=== PATIENT | male | born 1930 | race Caucasian/White ===

== ENCOUNTER 2019-06-26 17:21 | Inpatient (IN) ==
[2019-06-26] MEDS ORDERED: Ondansetron 4 MG/2 ML VIAL IVP PRN (19:52)
[2019-06-26] MEDS ORDERED: Naloxone 0.4 MG/ML INJ IVP PRN (19:52)
[2019-06-26] MEDS ORDERED: Acetaminophen 325 MG TABLET PO PRN (19:52)
[2019-06-26] MEDS ORDERED: Furosemide 40 MG in 0.9 % Sodium Chloride 50 ML IV ONE (20:21)
[2019-06-26] MEDS ORDERED: Furosemide 40 MG in 0.9 % Sodium Chloride 50 ML IVP ONE (20:23)
[2019-06-26] MEDS ORDERED: Furosemide 40 MG/4 ML VIAL IVP ONE (20:30)
[2019-06-26 20:48] LABS: Basophils % 0.3 %; Eosinophils # 0.2 K/mcL (0.0-0.6); Eosinophils % 2.8 %; Hematocrit 31.6 % (37.5-50.1); Hemoglobin 10.3 g/dL (12.9-16.9); Immature Granulocytes % 0.1 % (0-4); Lymphocytes # 1.8 K/mcL (0.6-4.6); Lymphocytes % 25.5 %; Mean Corpuscular HGB Conc 32.6 g/dL (31.6-35.5); Mean Corpuscular Hemoglobin 36.9 pg (28.0-33.3); Mean Corpuscular Volume 113.3 fL (83.0-100.0); Mean Platelet Volume 11.6 fL (9.4-12.4); Monocytes % 13.8 %; Neutrophils # 4.1 K/mcL (1.6-8.9); Platelet Count 284 K/mcL (140-400); Red Blood Count 2.79 M/mcL (4.19-5.50); Red Cell Distribution Width 15.9 % (11.5-14.5); Segmented Neutrophils % 57.5 %; White Blood Count 7.2 K/mcL (4.3-11.1)
[2019-06-26] MEDS: *HR* Digoxin 0.125 MG TABLET PO SCH (21:00)
[2019-06-26 21:07] LABS: Alanine Aminotransferase 37 Units/L (7-52); Albumin 2.4 g/dL (3.5-5.7); Albumin/Globulin Ratio 0.8 (1.1-2.2); Alkaline Phosphatase 191 Units/L (34-104); Aspartate Amino Transferase 37 Units/L (13-39); BUN/Creatinine Ratio 18 (6-26); Bilirubin,Total 0.3 mg/dL (0.3-1.0); Blood Urea Nitrogen 19 mg/dL (8-23); Carbon Dioxide 29 mEq/L (23-29); Chloride 106 mEq/L (98-107); Glucose 106 mg/dL (70-105); Magnesium 1.8 mg/dL (1.6-2.6); Osmolality,Calculated 287 (280-300); Potassium 4.9 mEq/L (3.5-5.1); Sodium 137 mEq/L (136-145); Total Protein 5.4 g/dL (6.4-8.9); eGFR For African Americans > 60 (> 60); eGFR For Non-African Americans > 60 (> 60)
[2019-06-26 21:20] LABS: Anisocytosis 1+ (Not Present); Ovalocytes 2+ (Not Present); Platelet Estimate Normal (Normal); Tear Drop Cells 2+ (Not Present)
[2019-06-26] MEDS ORDERED: *HR* Heparin 5,000 UNIT/ML VIAL IVP ONE (21:23)
[2019-06-26] MEDS ORDERED: *HR* Heparin 5,000 UNIT/ML VIAL IVP PRN ×2 (21:23)
[2019-06-26 21:39] LABS: INR 1.1; Prothrombin Time 12.4 Seconds (9.4-12.1)
[2019-06-26 22:05] LABS: Troponin I 0.05 ng/mL (< 0.04)
[2019-06-26] MEDS: Heparin 25,000 UNIT/250 ML D5W 25,000 UNIT/250 ML IV.SOLN IVC SCH (22:08)
[2019-06-27 04:13] LABS: Prothrombin Time 11.9 Seconds (9.4-12.1)
[2019-06-27 04:18] LABS: Basophils % 0.3 %; Eosinophils # 0.2 K/mcL (0.0-0.6); Eosinophils % 2.8 %; Hematocrit 31.8 % (37.5-50.1); Hemoglobin 10.6 g/dL (12.9-16.9); Immature Granulocytes % 0.2 % (0-4); Lymphocytes # 1.9 K/mcL (0.6-4.6); Lymphocytes % 21.6 %; Mean Corpuscular HGB Conc 33.3 g/dL (31.6-35.5); Mean Corpuscular Hemoglobin 36.4 pg (28.0-33.3); Mean Corpuscular Volume 109.3 fL (83.0-100.0); Mean Platelet Volume 11.9 fL (9.4-12.4); Monocytes % 11.9 %; Neutrophils # 5.5 K/mcL (1.6-8.9); Platelet Count 300 K/mcL (140-400); Red Blood Count 2.91 M/mcL (4.19-5.50); Red Cell Distribution Width 15.8 % (11.5-14.5); Segmented Neutrophils % 63.2 %; White Blood Count 8.7 K/mcL (4.3-11.1)
[2019-06-27 04:37] LABS: BUN/Creatinine Ratio 19 (6-26); Blood Urea Nitrogen 20 mg/dL (8-23); Calcium 7.3 mg/dL (8.6-10.3); Carbon Dioxide 27 mEq/L (23-29); Chloride 104 mEq/L (98-107); Glucose 76 mg/dL (70-105); Magnesium 1.6 mg/dL (1.6-2.6); Osmolality,Calculated 285 (280-300); Potassium 4.4 mEq/L (3.5-5.1); Sodium 137 mEq/L (136-145); eGFR For African Americans > 60 (> 60); eGFR For Non-African Americans > 60 (> 60)
[2019-06-27 04:45] LABS: % Iron Saturation 47 % (20-55); Iron 63 mcg/dL (65-175); Transferrin 96 mg/dL (203-362)
[2019-06-27 04:58] LABS: Ferritin 92 ng/mL (20-250)
[2019-06-27 05:05] LABS: Folate > 22.3 ng/mL (3.0-16.0); Vitamin B12 384 pg/mL (250-1100)
[2019-06-27] MEDS: Isosorbide MONOnitrate (24 HR) 60 MG TAB.ER.24H PO SCH (08:52)
[2019-06-27] MEDS: Cholecalciferol (D-3) 1,000 UNIT (25MCG) TABLET PO SCH (08:52)
[2019-06-27] MEDS: carvediloL 6.25 MG TABLET PO SCH ×2 (08:53→16:27)
[2019-06-27] MEDS: *HR* Digoxin 0.125 MG TABLET PO SCH (08:53)
[2019-06-27] MEDS: Furosemide 20 MG TABLET PO SCH ×2 (08:53→16:27)
[2019-06-27] MEDS: Heparin 25,000 UNIT/250 ML D5W 25,000 UNIT/250 ML IV.SOLN IVC SCH (23:52)
[2019-06-28 07:31] VITALS: BP 117/67
[2019-06-28 07:31] LABS: Basophils % 0.6 %; Eosinophils # 0.2 K/mcL (0.0-0.6); Eosinophils % 3.5 %; Hematocrit 28.6 % (37.5-50.1); Hemoglobin 9.6 g/dL (12.9-16.9); Immature Granulocytes % 0.2 % (0-4); Lymphocytes # 1.7 K/mcL (0.6-4.6); Lymphocytes % 26.4 %; Mean Corpuscular HGB Conc 33.6 g/dL (31.6-35.5); Mean Corpuscular Hemoglobin 36.6 pg (28.0-33.3); Mean Corpuscular Volume 109.2 fL (83.0-100.0); Mean Platelet Volume 11.9 fL (9.4-12.4); Monocytes # 0.9 K/mcL (0.0-1.3); Monocytes % 13.3 %; Neutrophils # 3.6 K/mcL (1.6-8.9); Platelet Count 248 K/mcL (140-400); Red Blood Count 2.62 M/mcL (4.19-5.50); Red Cell Distribution Width 15.6 % (11.5-14.5); White Blood Count 6.4 K/mcL (4.3-11.1)
[2019-06-28 07:36] LABS: BUN/Creatinine Ratio 22 (6-26); Blood Urea Nitrogen 30 mg/dL (8-23); Carbon Dioxide 30 mEq/L (23-29); Chloride 101 mEq/L (98-107); Glucose 85 mg/dL (70-105); Magnesium 1.9 mg/dL (1.6-2.6); Osmolality,Calculated 287 (280-300); Potassium 4.6 mEq/L (3.5-5.1); Sodium 136 mEq/L (136-145); eGFR For African Americans > 60 (> 60); eGFR For Non-African Americans 50 (> 60)
[2019-06-28] MEDS ORDERED: Aspirin Enteric Coated 81 MG Tablet PO SCH (09:00)
[2019-06-28] MEDS ORDERED: Magnesium Oxide 400 MG TABLET PO SCH (09:00)
[2019-06-28] MEDS ORDERED: Finasteride 5 MG TABLET PO SCH (09:00)
[2019-06-28] MEDS: carvediloL 6.25 MG TABLET PO SCH (09:46)
[2019-06-28] MEDS: Isosorbide MONOnitrate (24 HR) 60 MG TAB.ER.24H PO SCH (09:47)
[2019-06-28] MEDS: *HR* Digoxin 0.125 MG TABLET PO SCH (09:49)
[2019-06-28] MEDS: Cholecalciferol (D-3) 1,000 UNIT (25MCG) TABLET PO SCH (09:50)
[2019-06-28] MEDS: Furosemide 20 MG TABLET PO SCH (09:50)
== END 2019-06-28 18:11 | disposition home or self-care (01) | DRG 280 ==
LOC: 2NENU → SUATTDRO 18:57
PROVIDERS: ADMIT Pharmacist; ATTEND Family Medicine

== ENCOUNTER 2019-08-25 20:34 | Inpatient (IN) ==
[2019-08-26] MEDS ORDERED: Naloxone 0.4 MG/ML INJ IVP PRN (00:08)
[2019-08-26 00:34] LABS: Basophils % 0.3 %; Eosinophils # 0.1 K/mcL (0.0-0.6); Eosinophils % 1.3 %; Immature Granulocytes % 0.2 % (0-4); Lymphocytes # 2.8 K/mcL (0.6-4.6); Lymphocytes % 25.9 %; Mean Corpuscular HGB Conc 31.4 g/dL (31.6-35.5); Mean Corpuscular Hemoglobin 35.9 pg (28.0-33.3); Mean Corpuscular Volume 114.4 fL (83.0-100.0); Mean Platelet Volume 11.6 fL (9.4-12.4); Monocytes # 1.4 K/mcL (0.0-1.3); Monocytes % 12.4 %; Platelet Count 310 K/mcL (140-400); Red Blood Count 3.06 M/mcL (4.19-5.50); Red Cell Distribution Width 14.6 % (11.5-14.5); Segmented Neutrophils % 59.9 %; White Blood Count 10.9 K/mcL (4.3-11.1)
[2019-08-26 00:52] LABS: Neutrophils # 6.5 K/mcL (1.6-8.9)
[2019-08-26] MEDS ORDERED: Dextrose Gel 15 GM/37.5 ML TUBE PO ONE (00:55)
[2019-08-26 00:56] LABS: Burr Cells 1+ (Not Present); Calcium 6.4 mg/dL (8.6-10.3); Hypochromasia Present (Not Present); Macrocytosis Present (Not Present); Magnesium 2.4 mg/dL (1.6-2.6); Platelet Estimate Normal (Normal); Potassium 5.8 mEq/L (3.5-5.1)
[2019-08-26] MEDS ORDERED: Dextrose Gel 15 GM/37.5 ML TUBE PO PRN ×2 (01:23)
[2019-08-26] MEDS ORDERED: D5% in Water 1,000 ML IVC PRN (01:23)
[2019-08-26] MEDS ORDERED: *HR* Dextrose 50 % in Water (Syg) 50 ML SYRINGE IVP PRN (01:23)
[2019-08-26] MEDS ORDERED: 0.9 % Sodium Chloride 1,000 ML IVC SCH ×3 (01:45→13:38)
[2019-08-26 01:55] LABS: Digoxin 2.7 ng/mL (0.8-2.0)
[2019-08-26] MEDS ORDERED: D5% in 0.9% NACL 1,000 ML IVC SCH ×2 (04:30→17:00)
[2019-08-26 05:46] LABS: Calcium 6.6 mg/dL (8.6-10.3); Phosphorous 5.5 mg/dL (2.7-4.5); Potassium 5.9 mEq/L (3.5-5.1)
[2019-08-26] MEDS: Calcium Gluconate 1gm/50mL 1 GM/50 ML BAG IVPB SCH ×2 (06:09→07:09)
[2019-08-26 06:31] LABS: Protein/Creatinine Ratio,Urine 0.54 mg/mg (0.00-0.20); Sodium, Urine 45.2 mEq/L
[2019-08-26] MEDS ORDERED: hydrALAZINE 25 MG TABLET PO SCH (09:00)
[2019-08-26] MEDS ORDERED: Isosorbide MONOnitrate (24 HR) 60 MG TAB.ER.24H PO SCH (09:00)
[2019-08-26] MEDS ORDERED: Metoprolol XL (24 HR) Succ 25 MG TAB.ER.24H PO SCH ×2 (09:00→09:45)
[2019-08-26] MEDS: allopurinoL 100 MG TABLET PO SCH (09:26)
[2019-08-26] MEDS: Finasteride 5 MG TABLET PO SCH (09:26)
[2019-08-26] MEDS: Aspirin Enteric Coated 81 MG Tablet PO SCH (09:26)
[2019-08-26] MEDS: SODIUM ZIRCONIUM CYCLOSILICATE 5 GM POWD.PACK PO SCH (09:26)
[2019-08-26] MEDS: Magnesium Oxide 400 MG TABLET PO SCH (09:26)
[2019-08-26] MEDS ORDERED: 0.9 % Sodium Chloride 500 ML IVC ONE (09:46)
[2019-08-26 12:34] LABS: Calcium 6.5 mg/dL (8.6-10.3); Potassium 4.5 mEq/L (3.5-5.1)
[2019-08-26] MEDS ORDERED: 0.9 % Sodium Chloride 500 ML IV ONE (12:38)
[2019-08-26] MEDS: 0.9 % Sodium Chloride 500 ML IVC PRN ×2 (13:22→16:15)
[2019-08-26] MEDS ORDERED: Calcium Gluconate 1gm/50mL 1 GM/50 ML BAG IVPB ONE (13:56)
[2019-08-26] MEDS: *HR* Heparin 5,000 UNIT/ML VIAL SQ SCH (16:25)
[2019-08-26] MEDS: 0.9 % Sodium Chloride 1,000 ML IVC SCH (17:03)
[2019-08-26] MEDS ORDERED: Amiodarone Premix 360 MG/200 ML BAG IVC ONE (18:08)
[2019-08-26] MEDS ORDERED: Amiodarone Premix 150 MG/100 ML BAG IVPB ONE (18:08)
[2019-08-26] MEDS ORDERED: Amiodarone Premix 360 MG/200 ML BAG IVC SCH (18:15)
[2019-08-26] MEDS ORDERED: Albumin 25% 25gram/100mL 25 GM/100 ML IV.SOLN IVPB ONE ×2 (20:28→22:18)
[2019-08-27] MEDS: 0.9 % Sodium Chloride 1,000 ML IVC SCH (00:33)
[2019-08-27] MEDS ORDERED: Levalbuterol Neb 1.25 MG/3 ML IH ONE (00:41)
[2019-08-27] MEDS: *HR* Heparin 5,000 UNIT/ML VIAL SQ SCH (04:34)
[2019-08-27 05:32] LABS: Basophils % 0.2 %; Eosinophils # 0.1 K/mcL (0.0-0.6); Eosinophils % 1.4 %; Hematocrit 33.4 % (37.5-50.1); Hemoglobin 10.4 g/dL (12.9-16.9); Immature Granulocytes % 0.5 % (0-4); Lymphocytes % 14.7 %; Mean Corpuscular HGB Conc 31.1 g/dL (31.6-35.5); Mean Corpuscular Hemoglobin 36.2 pg (28.0-33.3); Mean Corpuscular Volume 116.4 fL (83.0-100.0); Mean Platelet Volume 12.2 fL (9.4-12.4); Monocytes # 0.9 K/mcL (0.0-1.3); Monocytes % 10.2 %; Neutrophils # 6.2 K/mcL (1.6-8.9); Nucleated Red Blood Cells 0.2 /100 WBC (0); Platelet Count 296 K/mcL (140-400); Red Blood Count 2.87 M/mcL (4.19-5.50); White Blood Count 8.5 K/mcL (4.3-11.1)
[2019-08-27 05:34] LABS: Lymphocytes # 1.3 K/mcL (0.6-4.6)
[2019-08-27 05:50] LABS: Albumin 2.9 g/dL (3.5-5.7); Albumin/Globulin Ratio 1.2 (1.1-2.2); Bilirubin,Total 0.2 mg/dL (0.3-1.0); Calcium 6.7 mg/dL (8.6-10.3); Globulin 2.4 g/dL (2.4-3.5); Potassium 4.7 mEq/L (3.5-5.1); Total Protein 5.3 g/dL (6.4-8.9)
[2019-08-27 05:52] LABS: Platelet Estimate Normal (Normal)
[2019-08-27 05:53] LABS: Macrocytosis Present (Not Present)
[2019-08-27] MEDS: allopurinoL 100 MG TABLET PO SCH (09:19)
[2019-08-27] MEDS: Magnesium Oxide 400 MG TABLET PO SCH (09:20)
[2019-08-27] MEDS: Finasteride 5 MG TABLET PO SCH (09:20)
[2019-08-27] MEDS: Aspirin Enteric Coated 81 MG Tablet PO SCH (09:20)
[2019-08-27] MEDS: Calcium Gluconate 1gm/50mL 1 GM/50 ML BAG IVPB SCH ×2 (09:20→11:18)
[2019-08-27] MEDS: SODIUM ZIRCONIUM CYCLOSILICATE 5 GM POWD.PACK PO SCH (09:20)
[2019-08-27 09:43] LABS: VBG HCO3 17 mEq/L (21-27); VBG PCO2 53 mmHg (41-51); VBG PH 7.12 pH Units (7.32-7.42); VBG PO2 107 mmHg (25-50)
[2019-08-27 10:11] LABS: Thyroid Stimulating Hormone 2.247 mcIU/mL (0.340-5.600)
[2019-08-27 10:33] LABS: INR 1.2; Prothrombin Time 13.8 Seconds (9.4-12.1)
[2019-08-27] MEDS ORDERED: Sodium Bicarbonate 150 MEQ in D5% in Water 1,000 ML IVC SCH (11:45)
[2019-08-27 16:17] LABS: ABG Base Excess -9 mEq/L (-2 to 3); ABG HCO3 19 mEq/L (21-27); ABG Oxygen Saturation 97 % (95-98); ABG PCO2 45 mmHg (35-45); ABG PH 7.22 pH Units (7.32-7.45); ABG PO2 103 mmHg (85-104); ABG TCO2 20 mEq/L (20-26); Blood Gas Modality ST
[2019-08-27] MEDS ORDERED: *HR* Heparin 5,000 UNIT/ML VIAL IVP PRN (16:28)
[2019-08-27] MEDS: Heparin 25,000 UNIT/250 ML D5W 25,000 UNIT/250 ML IV.SOLN IVC SCH (18:31)
[2019-08-28 00:45] LABS: Basophils % 0.2 %; Eosinophils # 0.1 K/mcL (0.0-0.6); Eosinophils % 1.2 %; Hematocrit 32.3 % (37.5-50.1); Hemoglobin 10.4 g/dL (12.9-16.9); Immature Granulocytes % 0.5 % (0-4); Lymphocytes # 0.8 K/mcL (0.6-4.6); Lymphocytes % 9.1 %; Mean Corpuscular HGB Conc 32.2 g/dL (31.6-35.5); Mean Corpuscular Hemoglobin 36.4 pg (28.0-33.3); Mean Corpuscular Volume 112.9 fL (83.0-100.0); Mean Platelet Volume 11.9 fL (9.4-12.4); Monocytes % 9.5 %; Platelet Count 271 K/mcL (140-400); Red Blood Count 2.86 M/mcL (4.19-5.50); Segmented Neutrophils % 79.5 %; White Blood Count 8.9 K/mcL (4.3-11.1)
[2019-08-28 00:46] LABS: INR 1.3; Prothrombin Time 14.4 Seconds (9.4-12.1)
[2019-08-28 00:53] LABS: Monocytes # 0.9 K/mcL (0.0-1.3); Neutrophils # 7.1 K/mcL (1.6-8.9)
[2019-08-28 00:57] LABS: Albumin 2.5 g/dL (3.5-5.7); Albumin/Globulin Ratio 1.1 (1.1-2.2); Bilirubin,Indirect 0.2 mg/dL (0.0-1.0); Bilirubin,Total 0.2 mg/dL (0.3-1.0); Calcium 6.7 mg/dL (8.6-10.3); Globulin 2.3 g/dL (2.4-3.5); Magnesium 2.1 mg/dL (1.6-2.6); Potassium 3.8 mEq/L (3.5-5.1); Total Protein 4.8 g/dL (6.4-8.9)
[2019-08-28] MEDS: *HR* Heparin 5,000 UNIT/ML VIAL IVP PRN (01:26)
[2019-08-28] MEDS: Calcium Gluconate 1gm/50mL 1 GM/50 ML BAG IVPB SCH ×2 (01:28→02:02)
[2019-08-28 01:41] LABS: Anisocytosis 1+ (Not Present); Macrocytosis Present (Not Present); Platelet Estimate Normal (Normal)
[2019-08-28] MEDS: Heparin 25,000 UNIT/250 ML D5W 25,000 UNIT/250 ML IV.SOLN IVC SCH (02:08)
[2019-08-28 05:06] LABS: ABG Base Excess -7 mEq/L (-2 to 3); ABG HCO3 19 mEq/L (21-27); ABG Oxygen Saturation 92 % (95-98); ABG PCO2 40 mmHg (35-45); ABG PH 7.29 pH Units (7.32-7.45); ABG PO2 70 mmHg (85-104); ABG TCO2 20 mEq/L (20-26)
[2019-08-28] MEDS ORDERED: 0.9 % Sodium Chloride 250 ML IVC PRN (07:23)
[2019-08-28] MEDS ORDERED: Albumin 25% 25gram/100mL 25 GM/100 ML IV.SOLN IVPB PRN (07:23)
[2019-08-28] MEDS ORDERED: 0.9 % Sodium Chloride 1,000 ML PRIME SCH ×2 (07:30→11:00)
[2019-08-28] MEDS: Finasteride 5 MG TABLET PO SCH (08:36)
[2019-08-28] MEDS: Magnesium Oxide 400 MG TABLET PO SCH (08:36)
[2019-08-28] MEDS: Aspirin Enteric Coated 81 MG Tablet PO SCH (08:39)
[2019-08-28 08:57] LABS: Hepatitis B Surface Antibody 5.91 mIU/mL
[2019-08-28 09:08] LABS: Hepatitis B Surface Antigen Nonreactive (Nonreactive)
[2019-08-28] MEDS ORDERED: *HR* Heparin 5,000 UNIT/ML VIAL CRRT PRN (10:47)
[2019-08-28] MEDS: Levalbuterol Neb 1.25 MG/3 ML IH SCH ×3 (14:05→21:57)
[2019-08-28] MEDS ORDERED: *HR* Heparin 5,000 UNIT/ML VIAL ONE (14:07)
[2019-08-28] MEDS ORDERED: *HR* Heparin 5,000 UNIT/ML VIAL CRRT ONE (14:23)
[2019-08-28] MEDS: Phenylephrine 10 MG in 0.9 % Sodium Chloride 250 ML IVC SCH ×2 (15:21→20:06)
[2019-08-28] MEDS ORDERED: 0.9 % Sodium Chloride 500 ML ONE (15:58)
[2019-08-28] MEDS: PrismaSATE BGK 4/2.5 5,000 ML CRRT SCH ×4 (16:11→22:04)
[2019-08-29] MEDS: PrismaSATE BGK 4/2.5 5,000 ML CRRT SCH ×8 (03:22→19:27)
[2019-08-29] MEDS: Phenylephrine 10 MG in 0.9 % Sodium Chloride 250 ML IVC SCH ×2 (03:22→10:20)
[2019-08-29 03:30] LABS: Immature Granulocytes % 0.3 % (0-4); Mean Platelet Volume 11.7 fL (9.4-12.4); Red Cell Distribution Width 15.2 % (11.5-14.5)
[2019-08-29 03:31] LABS: Basophils % 0.3 %; Eosinophils # 0.1 K/mcL (0.0-0.6); Eosinophils % 0.9 %; Hematocrit 27.7 % (37.5-50.1); Lymphocytes % 14.3 %; Mean Corpuscular HGB Conc 32.9 g/dL (31.6-35.5); Mean Corpuscular Hemoglobin 36.4 pg (28.0-33.3); Mean Corpuscular Volume 110.8 fL (83.0-100.0); Monocytes # 0.8 K/mcL (0.0-1.3); Monocytes % 11.4 %; Neutrophils # 4.8 K/mcL (1.6-8.9); Nucleated Red Blood Cells 0.3 /100 WBC (0); Platelet Count 226 K/mcL (140-400); Segmented Neutrophils % 72.8 %; White Blood Count 6.6 K/mcL (4.3-11.1)
[2019-08-29 03:32] LABS: Hemoglobin 9.1 g/dL (12.9-16.9); Lymphocytes # 0.9 K/mcL (0.6-4.6)
[2019-08-29 03:35] LABS: VBG Ionized Calcium 0.96 mmol/L (1.15-1.35)
[2019-08-29] MEDS ORDERED: *HR* Heparin 5,000 UNIT/ML VIAL ONE ×3 (03:40→19:44)
[2019-08-29 03:51] LABS: Calcium 6.3 mg/dL (8.6-10.3); Potassium 3.6 mEq/L (3.5-5.1)
[2019-08-29] MEDS: Levalbuterol Neb 1.25 MG/3 ML IH SCH ×4 (03:56→22:58)
[2019-08-29] MEDS: Aspirin Enteric Coated 81 MG Tablet PO SCH (08:39)
[2019-08-29] MEDS: Magnesium Oxide 400 MG TABLET PO SCH (08:39)
[2019-08-29] MEDS: Finasteride 5 MG TABLET PO SCH (08:40)
[2019-08-29] MEDS: Artificial Tears SOLN 15 ML BOTTLE BOTH EYES SCH ×4 (08:51→20:15)
[2019-08-29] MEDS: *HR* Metoprolol 5 MG/5 ML VIAL IVP PRN ×2 (09:37→23:08)
[2019-08-29] MEDS: Heparin 25,000 UNIT/250 ML D5W 25,000 UNIT/250 ML IV.SOLN IVC SCH (10:18)
[2019-08-29] MEDS ORDERED: 0.9 % Sodium Chloride 250 ML ONE (10:38)
[2019-08-29] MEDS ORDERED: *HR* Digoxin 0.125 MG TABLET PO SCH (11:30)
[2019-08-29] MEDS ORDERED: Calcium Gluconate 1,000 MG/10 ML VIAL IVPB PRN (14:04)
[2019-08-29] MEDS: Calcium Gluconate 2,000 MG in 0.9 % Sodium Chloride 100 ML IVPB PRN (14:57)
[2019-08-29] MEDS ORDERED: Phenylephrine 20 MG in 0.9 % Sodium Chloride 250 ML IVC SCH (15:15)
[2019-08-29] MEDS ORDERED: Phenylephrine 50 MG in 0.9 % Sodium Chloride 250 ML IVC SCH (16:45)
[2019-08-29 20:19] LABS: VBG Ionized Calcium 0.96 mmol/L (1.15-1.35)
[2019-08-29] MEDS: *HR* Heparin 5,000 UNIT/ML VIAL IVP PRN (20:29)
[2019-08-30] MEDS: Calcium Gluconate 2,000 MG in 0.9 % Sodium Chloride 100 ML IVPB PRN ×4 (00:07→22:43)
[2019-08-30] MEDS: PrismaSATE BGK 4/2.5 5,000 ML CRRT SCH ×10 (00:10→23:10)
[2019-08-30 03:27] LABS: Basophils % 0.1 %; Eosinophils # 0.1 K/mcL (0.0-0.6); Eosinophils % 1.9 %; Hematocrit 26.1 % (37.5-50.1); Hemoglobin 8.5 g/dL (12.9-16.9); Immature Granulocytes % 0.3 % (0-4); Lymphocytes # 1.3 K/mcL (0.6-4.6); Lymphocytes % 18.5 %; Mean Corpuscular HGB Conc 32.6 g/dL (31.6-35.5); Mean Corpuscular Volume 110.6 fL (83.0-100.0); Mean Platelet Volume 12.3 fL (9.4-12.4); Monocytes # 0.9 K/mcL (0.0-1.3); Monocytes % 12.7 %; Neutrophils # 4.8 K/mcL (1.6-8.9); Nucleated Red Blood Cells 0.3 /100 WBC (0); Platelet Count 219 K/mcL (140-400); Red Blood Count 2.36 M/mcL (4.19-5.50); Red Cell Distribution Width 15.2 % (11.5-14.5); Segmented Neutrophils % 66.5 %; White Blood Count 7.2 K/mcL (4.3-11.1)
[2019-08-30 03:30] LABS: VBG Ionized Calcium 0.99 mmol/L (1.15-1.35)
[2019-08-30] MEDS: Levalbuterol Neb 1.25 MG/3 ML IH SCH ×4 (03:34→21:42)
[2019-08-30 03:44] LABS: Anisocytosis 1+ (Not Present)
[2019-08-30 03:45] LABS: Platelet Estimate Normal (Normal); Schistocytes 1+ (Not Present)
[2019-08-30 03:46] LABS: BUN/Creatinine Ratio 19 (6-26); Blood Urea Nitrogen 21 mg/dL (8-23); Calcium 6.6 mg/dL (8.6-10.3); Carbon Dioxide 26 mEq/L (23-29); Chloride 106 mEq/L (98-107); Glucose 101 mg/dL (70-105); Magnesium 2.1 mg/dL (1.6-2.6); Osmolality,Calculated 283 (280-300); Phosphorous 1.3 mg/dL (2.7-4.5); Sodium 135 mEq/L (136-145); eGFR For African Americans > 60 (> 60); eGFR For Non-African Americans > 60 (> 60)
[2019-08-30] MEDS: Aspirin Enteric Coated 81 MG Tablet PO SCH (07:42)
[2019-08-30] MEDS: Magnesium Oxide 400 MG TABLET PO SCH (07:42)
[2019-08-30] MEDS: Finasteride 5 MG TABLET PO SCH (07:42)
[2019-08-30] MEDS: Artificial Tears SOLN 15 ML BOTTLE BOTH EYES SCH ×4 (07:43→21:36)
[2019-08-30] MEDS ORDERED: Amiodarone Premix 150 MG/100 ML BAG IVPB ONE (08:59)
[2019-08-30] MEDS ORDERED: Amiodarone Premix 360 MG/200 ML BAG IVC ONE (08:59)
[2019-08-30] MEDS: Heparin 25,000 UNIT/250 ML D5W 25,000 UNIT/250 ML IV.SOLN IVC SCH (12:07)
[2019-08-30 14:38] LABS: Magnesium 2.3 mg/dL (1.6-2.6); Phosphorous 2.3 mg/dL (2.7-4.5)
[2019-08-30] MEDS: polyethylene glycoL 3350 17 GM POWD.PACK PO SCH (14:42)
[2019-08-30 15:00] LABS: VBG Ionized Calcium 1.01 mmol/L (1.15-1.35)
[2019-08-30] MEDS: Amiodarone Premix 360 MG/200 ML BAG IVC SCH (15:45)
[2019-08-30 20:20] LABS: VBG Ionized Calcium 1.03 mmol/L (1.15-1.35)
[2019-08-31] MEDS: Amiodarone Premix 360 MG/200 ML BAG IVC SCH ×2 (03:00→13:24)
[2019-08-31] MEDS: Heparin 25,000 UNIT/250 ML D5W 25,000 UNIT/250 ML IV.SOLN IVC SCH (03:20)
[2019-08-31 03:26] LABS: Basophils % 0.1 %; Eosinophils # 0.2 K/mcL (0.0-0.6); Eosinophils % 2.5 %; Hematocrit 24.7 % (37.5-50.1); Hemoglobin 7.8 g/dL (12.9-16.9); Immature Granulocytes % 0.3 % (0-4); Lymphocytes # 1.2 K/mcL (0.6-4.6); Lymphocytes % 17.4 %; Mean Corpuscular HGB Conc 31.6 g/dL (31.6-35.5); Mean Corpuscular Hemoglobin 35.8 pg (28.0-33.3); Mean Corpuscular Volume 113.3 fL (83.0-100.0); Mean Platelet Volume 12.4 fL (9.4-12.4); Monocytes # 0.9 K/mcL (0.0-1.3); Monocytes % 13.2 %; Neutrophils # 4.6 K/mcL (1.6-8.9); Nucleated Red Blood Cells 0.3 /100 WBC (0); Platelet Count 204 K/mcL (140-400); Red Blood Count 2.18 M/mcL (4.19-5.50); Red Cell Distribution Width 15.5 % (11.5-14.5); Segmented Neutrophils % 66.5 %; White Blood Count 6.9 K/mcL (4.3-11.1)
[2019-08-31] MEDS: Levalbuterol Neb 1.25 MG/3 ML IH SCH ×4 (03:35→21:33)
[2019-08-31 03:42] LABS: BUN/Creatinine Ratio 14 (6-26); Blood Urea Nitrogen 15 mg/dL (8-23); Calcium 6.7 mg/dL (8.6-10.3); Carbon Dioxide 27 mEq/L (23-29); Chloride 105 mEq/L (98-107); Digoxin 1.4 ng/mL (0.8-2.0); Glucose 103 mg/dL (70-105); Magnesium 2.1 mg/dL (1.6-2.6); Osmolality,Calculated 279 (280-300); Phosphorous 2.5 mg/dL (2.7-4.5); Potassium 4.2 mEq/L (3.5-5.1); Sodium 134 mEq/L (136-145); eGFR For African Americans > 60 (> 60); eGFR For Non-African Americans > 60 (> 60)
[2019-08-31] MEDS: Calcium Gluconate 2,000 MG in 0.9 % Sodium Chloride 100 ML IVPB PRN ×2 (03:47→12:02)
[2019-08-31 04:12] LABS: Hypochromasia Present (Not Present); Platelet Estimate Normal (Normal)
[2019-08-31 04:13] LABS: Basophilic Stippling 1+ (Not Present); Schistocytes 1+ (Not Present)
[2019-08-31] MEDS: PrismaSATE BGK 4/2.5 5,000 ML CRRT SCH ×6 (05:41→19:25)
[2019-08-31] MEDS: Aspirin Enteric Coated 81 MG Tablet PO SCH (07:48)
[2019-08-31] MEDS: Finasteride 5 MG TABLET PO SCH (07:48)
[2019-08-31] MEDS: Magnesium Oxide 400 MG TABLET PO SCH (07:48)
[2019-08-31] MEDS: polyethylene glycoL 3350 17 GM POWD.PACK PO SCH (07:48)
[2019-08-31] MEDS: Artificial Tears SOLN 15 ML BOTTLE BOTH EYES SCH (07:49)
[2019-08-31 10:34] LABS: VBG Ionized Calcium 1.04 mmol/L (1.15-1.35)
[2019-08-31 16:46] LABS: Hemoglobin 7.8 g/dL (12.9-16.9)
[2019-09-01] MEDS: Heparin 25,000 UNIT/250 ML D5W 25,000 UNIT/250 ML IV.SOLN IVC SCH (00:09)
[2019-09-01] MEDS: Amiodarone Premix 360 MG/200 ML BAG IVC SCH ×2 (01:06→14:00)
[2019-09-01] MEDS: PrismaSATE BGK 4/2.5 5,000 ML CRRT SCH ×8 (02:02→23:15)
[2019-09-01 03:34] LABS: Basophils % 0.1 %; Eosinophils # 0.2 K/mcL (0.0-0.6); Eosinophils % 2.5 %; Hematocrit 23.3 % (37.5-50.1); Hemoglobin 7.5 g/dL (12.9-16.9); Immature Granulocytes % 0.4 % (0-4); Lymphocytes # 1.2 K/mcL (0.6-4.6); Lymphocytes % 13.7 %; Mean Corpuscular HGB Conc 32.2 g/dL (31.6-35.5); Mean Corpuscular Hemoglobin 36.1 pg (28.0-33.3); Mean Platelet Volume 12.2 fL (9.4-12.4); Monocytes % 12.1 %; Neutrophils # 6.1 K/mcL (1.6-8.9); Nucleated Red Blood Cells 0.4 /100 WBC (0); Platelet Count 216 K/mcL (140-400); Red Blood Count 2.08 M/mcL (4.19-5.50); Red Cell Distribution Width 15.2 % (11.5-14.5); Segmented Neutrophils % 71.2 %; White Blood Count 8.5 K/mcL (4.3-11.1)
[2019-09-01] MEDS: Levalbuterol Neb 1.25 MG/3 ML IH SCH ×4 (03:50→21:38)
[2019-09-01 03:53] LABS: Schistocytes 1+ (Not Present)
[2019-09-01 03:54] LABS: Hypochromasia Present (Not Present); Platelet Estimate Normal (Normal); Poikilocytosis 1+ (Not Present)
[2019-09-01 03:57] LABS: BUN/Creatinine Ratio 12 (6-26); Blood Urea Nitrogen 14 mg/dL (8-23); Calcium 6.6 mg/dL (8.6-10.3); Carbon Dioxide 29 mEq/L (23-29); Chloride 104 mEq/L (98-107); Glucose 98 mg/dL (70-105); Magnesium 2.1 mg/dL (1.6-2.6); Osmolality,Calculated 282 (280-300); Phosphorous 2.8 mg/dL (2.7-4.5); Potassium 4.2 mEq/L (3.5-5.1); Sodium 136 mEq/L (136-145); eGFR For African Americans > 60 (> 60); eGFR For Non-African Americans 57 (> 60)
[2019-09-01] MEDS: Calcium Gluconate 2,000 MG in 0.9 % Sodium Chloride 100 ML IVPB PRN (05:29)
[2019-09-01] MEDS: polyethylene glycoL 3350 17 GM POWD.PACK PO SCH (08:12)
[2019-09-01] MEDS ORDERED: Ondansetron 4 MG/2 ML VIAL IVP PRN (08:20)
[2019-09-01] MEDS: Pantoprazole 40 MG VIAL IVP SCH (08:53)
[2019-09-01] MEDS: Finasteride 5 MG TABLET PO SCH (08:53)
[2019-09-01] MEDS: Magnesium Oxide 400 MG TABLET PO SCH (08:54)
[2019-09-01] MEDS: Aspirin Enteric Coated 81 MG Tablet PO SCH (08:54)
[2019-09-01 13:56] LABS: Hematocrit 23.8 % (37.5-50.1); Hemoglobin 7.6 g/dL (12.9-16.9)
[2019-09-01] MEDS ORDERED: Ipratropium Neb 0.5 MG NEBULIZER ONE (15:08)
[2019-09-01] MEDS: Ipratropium Neb 0.5 MG NEBULIZER IH SCH ×2 (15:51→21:38)
[2019-09-02] MEDS: Heparin 25,000 UNIT/250 ML D5W 25,000 UNIT/250 ML IV.SOLN IVC SCH ×2 (01:00→22:43)
[2019-09-02] MEDS: Amiodarone Premix 360 MG/200 ML BAG IVC SCH ×3 (01:00→22:47)
[2019-09-02] MEDS: Ipratropium Neb 0.5 MG NEBULIZER IH SCH ×4 (03:30→21:37)
[2019-09-02] MEDS: Levalbuterol Neb 1.25 MG/3 ML IH SCH ×4 (03:30→21:37)
[2019-09-02 04:04] LABS: VBG Ionized Calcium 1.03 mmol/L (1.15-1.35)
[2019-09-02 04:11] LABS: Basophils % 0.1 %; Eosinophils # 0.2 K/mcL (0.0-0.6); Eosinophils % 2.6 %; Hemoglobin 7.6 g/dL (12.9-16.9); Immature Granulocytes % 0.4 % (0-4); Lymphocytes % 12.7 %; Mean Corpuscular HGB Conc 31.7 g/dL (31.6-35.5); Mean Corpuscular Hemoglobin 35.5 pg (28.0-33.3); Mean Corpuscular Volume 112.1 fL (83.0-100.0); Mean Platelet Volume 12.7 fL (9.4-12.4); Monocytes # 0.9 K/mcL (0.0-1.3); Monocytes % 11.7 %; Nucleated Red Blood Cells 0.5 /100 WBC (0); Platelet Count 221 K/mcL (140-400); Red Blood Count 2.14 M/mcL (4.19-5.50); Red Cell Distribution Width 15.3 % (11.5-14.5); Segmented Neutrophils % 72.5 %; White Blood Count 7.8 K/mcL (4.3-11.1)
[2019-09-02 04:12] LABS: Neutrophils # 5.7 K/mcL (1.6-8.9)
[2019-09-02 04:30] LABS: BUN/Creatinine Ratio 13 (6-26); Blood Urea Nitrogen 14 mg/dL (8-23); Calcium 6.9 mg/dL (8.6-10.3); Carbon Dioxide 28 mEq/L (23-29); Chloride 103 mEq/L (98-107); Glucose 90 mg/dL (70-105); Osmolality,Calculated 278 (280-300); Phosphorous 2.3 mg/dL (2.7-4.5); Potassium 3.9 mEq/L (3.5-5.1); Sodium 134 mEq/L (136-145); eGFR For African Americans > 60 (> 60); eGFR For Non-African Americans > 60 (> 60)
[2019-09-02 04:46] LABS: Macrocytosis Present (Not Present)
[2019-09-02 04:47] LABS: Platelet Estimate Normal (Normal)
[2019-09-02] MEDS: PrismaSATE BGK 4/2.5 5,000 ML CRRT SCH ×4 (05:48→11:46)
[2019-09-02] MEDS: Calcium Gluconate 2,000 MG in 0.9 % Sodium Chloride 100 ML IVPB PRN ×2 (06:06→13:23)
[2019-09-02] MEDS: Pantoprazole 40 MG VIAL IVP SCH (08:01)
[2019-09-02] MEDS: *HR* Metoprolol 5 MG/5 ML VIAL IVP PRN (08:01)
[2019-09-02] MEDS: Finasteride 5 MG TABLET PO SCH (08:02)
[2019-09-02] MEDS: Magnesium Oxide 400 MG TABLET PO SCH (08:02)
[2019-09-02] MEDS: Aspirin Enteric Coated 81 MG Tablet PO SCH (08:02)
[2019-09-02 12:48] LABS: VBG Ionized Calcium 1.05 mmol/L (1.15-1.35)
[2019-09-02 21:33] LABS: Hematocrit 22.2 % (37.5-50.1); Hemoglobin 7.2 g/dL (12.9-16.9)
[2019-09-03 01:48] LABS: Hematocrit 21.3 % (37.5-50.1); Hemoglobin 6.9 g/dL (12.9-16.9)
[2019-09-03] MEDS ORDERED: 0.9 % Sodium Chloride 250 ML IVC SCH (02:45)
[2019-09-03 03:08] LABS: Basophils % 0.1 %; Eosinophils # 0.1 K/mcL (0.0-0.6); Eosinophils % 1.6 %; Hematocrit 21.7 % (37.5-50.1); Immature Granulocytes % 0.6 % (0-4); Lymphocytes # 1.2 K/mcL (0.6-4.6); Lymphocytes % 13.4 %; Mean Corpuscular HGB Conc 32.3 g/dL (31.6-35.5); Mean Corpuscular Hemoglobin 36.5 pg (28.0-33.3); Mean Platelet Volume 12.4 fL (9.4-12.4); Neutrophils # 6.4 K/mcL (1.6-8.9); Nucleated Red Blood Cells 0.2 /100 WBC (0); Platelet Count 220 K/mcL (140-400); Red Blood Count 1.92 M/mcL (4.19-5.50); Red Cell Distribution Width 15.4 % (11.5-14.5); Segmented Neutrophils % 73.3 %; White Blood Count 8.7 K/mcL (4.3-11.1)
[2019-09-03 03:12] LABS: VBG Ionized Calcium 1.04 mmol/L (1.15-1.35)
[2019-09-03 03:42] LABS: Anisocytosis 1+ (Not Present); Macrocytosis Present (Not Present); Platelet Estimate Normal (Normal); Poikilocytosis 1+ (Not Present)
[2019-09-03] MEDS: Ipratropium Neb 0.5 MG NEBULIZER IH SCH ×4 (04:09→21:33)
[2019-09-03] MEDS: Levalbuterol Neb 1.25 MG/3 ML IH SCH ×4 (04:09→21:33)
[2019-09-03 04:31] LABS: Magnesium 1.9 mg/dL (1.6-2.6); Phosphorous 3.9 mg/dL (2.7-4.5)
[2019-09-03] MEDS ORDERED: Magnesium Sulfate 0 GM/0 ML PIGGYBACK IVPB ONE (04:53)
[2019-09-03] MEDS: Calcium Gluconate 2,000 MG in 0.9 % Sodium Chloride 100 ML IVPB PRN (05:00)
[2019-09-03] MEDS: Magnesium Oxide 400 MG TABLET PO SCH (08:44)
[2019-09-03] MEDS: Aspirin Enteric Coated 81 MG Tablet PO SCH (08:44)
[2019-09-03] MEDS: Pantoprazole 40 MG VIAL IVP SCH (08:45)
[2019-09-03] MEDS: Finasteride 5 MG TABLET PO SCH (08:45)
[2019-09-03] MEDS ORDERED: 0.9 % Sodium Chloride 500 ML ONE (10:02)
[2019-09-03] MEDS ORDERED: *HR* Heparin 5,000 UNIT/ML VIAL SQ SCH (14:00)
[2019-09-03 14:47] LABS: Hemoglobin 7.7 g/dL (12.9-16.9)
[2019-09-03] MEDS ORDERED: Dextrose Gel 15 GM/37.5 ML TUBE PO PRN ×2 (17:49)
[2019-09-03] MEDS ORDERED: *HR* Dextrose 50 % in Water (Syg) 50 ML SYRINGE IVP PRN (17:49)
[2019-09-03] MEDS ORDERED: Naloxone 0.4 MG/ML INJ IVP PRN (17:49)
[2019-09-03] MEDS ORDERED: D5% in Water 1,000 ML IVC PRN (17:49)
[2019-09-03] MEDS ORDERED: Ondansetron 4 MG/2 ML VIAL IVP PRN (17:49)
[2019-09-03] MEDS: *HR* Heparin 5,000 UNIT/ML VIAL SQ SCH (21:16)
[2019-09-04] MEDS: Levalbuterol Neb 1.25 MG/3 ML IH SCH ×4 (03:47→21:08)
[2019-09-04] MEDS: Ipratropium Neb 0.5 MG NEBULIZER IH SCH ×4 (03:47→21:08)
[2019-09-04 04:37] LABS: Hematocrit 24.6 % (37.5-50.1); Hemoglobin 7.8 g/dL (12.9-16.9); Mean Corpuscular HGB Conc 31.7 g/dL (31.6-35.5); Mean Corpuscular Hemoglobin 34.2 pg (28.0-33.3); Mean Corpuscular Volume 107.9 fL (83.0-100.0); Mean Platelet Volume 12.8 fL (9.4-12.4); Platelet Count 224 K/mcL (140-400); Red Blood Count 2.28 M/mcL (4.19-5.50); Red Cell Distribution Width 18.7 % (11.5-14.5); White Blood Count 8.4 K/mcL (4.3-11.1)
[2019-09-04 04:58] LABS: Calcium 6.5 mg/dL (8.6-10.3); Magnesium 1.9 mg/dL (1.6-2.6)
[2019-09-04] MEDS: *HR* Heparin 5,000 UNIT/ML VIAL SQ SCH ×3 (05:37→20:50)
[2019-09-04] MEDS: Finasteride 5 MG TABLET PO SCH (07:49)
[2019-09-04] MEDS: Aspirin Enteric Coated 81 MG Tablet PO SCH (07:49)
[2019-09-04] MEDS: Magnesium Oxide 400 MG TABLET PO SCH (07:49)
[2019-09-04] MEDS: Metoprolol XL (24 HR) Succ 25 MG TAB.ER.24H PO SCH (08:18)
[2019-09-04 17:32] LABS: Bilirubin,Urine Small (Negative); Blood,Urine Large (Negative); Clarity,Urine Turbid (Clear); Glucose,Urine (UA) Normal (Normal); Ketones,Urine Trace mg/dL (Negative); Leukocyte Esterase,Urine Moderate (Negative); Nitrite,Urine Negative (Negative); PH,Urine 5.5 pH Units (5.0-8.0); Protein,Urine >=300 mg/dL (Neg-Trace); Urobilinogen,Urine Normal (Normal)
[2019-09-04 17:37] LABS: Color,Urine Amber (Yellow)
[2019-09-04 17:44] LABS: RBC,Urine TNTC per hpf (0-3); Squamous Epithelial Cell,Urine Few per lpf (None-Few)
[2019-09-04 17:47] LABS: Amorphous Sediment,Urine Many per hpf (Few); Bacteria,Urine Present per hpf (None-Few); Yeast,Urine Present per hpf (None Seen)
[2019-09-05] MEDS: Ipratropium Neb 0.5 MG NEBULIZER IH SCH ×4 (04:02→15:46)
[2019-09-05] MEDS: Levalbuterol Neb 1.25 MG/3 ML IH SCH ×3 (04:02→15:46)
[2019-09-05] MEDS: *HR* Heparin 5,000 UNIT/ML VIAL SQ SCH ×2 (05:55→14:51)
[2019-09-05 06:15] LABS: Hematocrit 25.8 % (37.5-50.1); Hemoglobin 8.3 g/dL (12.9-16.9); Mean Corpuscular HGB Conc 32.2 g/dL (31.6-35.5); Mean Corpuscular Hemoglobin 34.7 pg (28.0-33.3); Mean Corpuscular Volume 107.9 fL (83.0-100.0); Platelet Count 232 K/mcL (140-400); Red Blood Count 2.39 M/mcL (4.19-5.50); White Blood Count 8.2 K/mcL (4.3-11.1)
[2019-09-05 06:35] LABS: Calcium 6.3 mg/dL (8.6-10.3); Potassium 4.3 mEq/L (3.5-5.1)
[2019-09-05] MEDS: Aspirin Enteric Coated 81 MG Tablet PO SCH (07:57)
[2019-09-05] MEDS: Magnesium Oxide 400 MG TABLET PO SCH (07:57)
[2019-09-05] MEDS: Metoprolol XL (24 HR) Succ 25 MG TAB.ER.24H PO SCH (07:57)
[2019-09-05] MEDS: Finasteride 5 MG TABLET PO SCH (07:58)
[2019-09-05] MEDS ORDERED: Haloperidol Lactate 5 MG/ML VIAL IVP ONE (10:10)
[2019-09-05 12:17] VITALS: BP 101/74
== END 2019-09-05 15:42 | disposition hospice, home (50) | DRG 682 ==
LOC: 2ANU → SUATTDRO 22:34 → 3NENU 08-26 18:30 → SUATTDRO 08-27 14:02 → ICNU 08-28 13:49 → 2ANU 09-03 17:47
PROVIDERS: ADMIT Internal Medicine; ATTEND Internal Medicine